=== PATIENT | male | born 1960 | race Hispanic/Latino ===

== ENCOUNTER 2018-06-29 19:45 | Emergency (ER) | payer BC ==
[2018-06-29 19:47] VITALS: BMI 30.8
[2018-06-29 19:53] VITALS: RESP 18; TEMP 97.3
[2018-06-29] MEDS ORDERED: Sodium Chloride 0.9% 500 ML IV STA ×2 (19:59→21:33)
--- NOTE | 2018-06-29 20:07 | ED PDOC ---
Arrival/HPI - General Chief Complaint: GI Problem Time Seen by Provider: 06/29/18 19:50 Historian: Patient - History of Present Illness Narrative History of Present Illness (Text): 06/29/18 20:03 57 m with hx gerd presents to the ED with dizziness and acute nausea/vomiting/diarrhea/ Patient states this morning he felt dizzy, went to work, then during the day vomiting and diarrhea began. Patient denies fever, no bloody emesis or bloody stools, no headache, no chest pain. No recent foreign travel, no abnormal po intake, no sick contacts. Patient presents to the ED actively vomiting. Symptom Onset: Gradual Symptom Course: Unchanged Activities at Onset: Light Past Medical History - Provider Review Nursing Documentation Reviewed: Yes - Cardiac Hx Cardiac Disorders: No Hx Pacemaker: No - Neurological Hx Paralysis: No - Hematological/Oncological Hx Blood Transfusions: No - Musculoskeletal/Rheumatological Hx Musculoskeletal Disorders: Yes - Gastrointestinal Hx Diverticulitis: Yes - Psychiatric Hx Emotional Abuse: No Hx Physical Abuse: No Hx Substance Use: No - Anesthesia Hx Anesthesia Reactions: No Hx Malignant Hyperthermia: No - Suicidal Assessment Feels Threatened In Home Enviroment: No Family/Social History - Physician Review Nursing Documentation Reviewed: Yes Family/Social History: No Known Family HX Smoking Status: Smoker Currrent Status Unknown Hx Alcohol Use: No Hx Substance Use: No Allergies/Home Meds Allergies/Adverse Reactions: Allergies No Known Allergies Allergy (Verified 06/29/18 20:01) Review of Systems - Physician Review All systems were reviewed & negative as marked: Yes - Review of Systems Constitutional: absent: Fevers Cardiovascular: absent: Chest Pain Gastrointestinal: Diarrhea, Vomiting. absent: Hematochezia, Food Intolerance Genitourinary Male: absent: Hematuria Neurological: Dizziness. absent: Headache Physical Exam - Physical Exam Narrative Physical Exam (Text): 06/29/18 20:07 Gen: VS reviewed, alert, well developed, well nourished, nontoxic, mild distress, actively vomiting mucus with greenish tinge without blood Eye: EOMI, PERRL Neck: no JVD, supple, no adenopathy CV: regular rate, regular rhythm, no rubs,no murmur, S1, S2 Pulm: no distress, clear to auscultation, no wheeze, no rhonchi, breath sounds equal, no rales Abd: soft, nontender, no guarding, no rebound, no rigidity Ext: no edema Skin: good color, no rash, no cyanosis Psych: responds appropriately to questions, normal affect Neuro: oriented x3, CN2-12 intact grossly, motor intact, sensation intact Vital Signs Reviewed: Yes Vital Signs Temp Pulse Resp BP Pulse Ox 06/29/18 19:53 97.3 F L 76 18 141/84 99 Temperature: Afebrile Blood Pressure: Normal Pulse: Regular Respiratory Rate: Normal Medical Decision Making ED Course and Treatment: 06/29/18 20:08 Impression: patient presents with acute vomiting and diarrhea, will check lytes, IVF to replete losses, antiemetic and reassess. Clinical presentation consistent with viral gastroent. Plan: -- labs -- IV Fluids, Zofran -- Gallbladder & Pancreas US -- Reassess and disposition Progress Notes: 06/29/18 22:18 patient feels much better, symptoms resolved and patient ready to go home. patient was seen for acute gastroent, no red flags such as fever or bloody stools or abnormal po intake. patient stable for dc, rx for antiemetic. - Lab Interpretations Narrative Lab Interpretation (Text): 06/29/18 20:21 mild nonspecific leukocytosis 06/29/18 20:59 elevated t bili, mild elevated lft I have reviewed the lab results: Yes - RAD Interpretation Narrative RAD Interpretations (Text): US - ABDOMINAL COMPLETE Electronically signed on Jun 29, 2018 9:22:09 PM EST by: Luis Enrique Hickey M.D. Impression Fatty liver. Otherwise negative. [employer] Architect: Radiologist - Medication Orders Current Medication Orders: Sodium Chloride (Sodium Chloride 0.9%) 500 mls @ 999 mls/hr IV .Q31M STA Stop: 06/29/18 20:29 Discontinued Medications Ondansetron HCl (Zofran Inj) 4 mg IVP STAT STA Stop: 06/29/18 19:59 Disposition/Present on Arrival - Present on Arrival Any Indicators Present on Arrival: No History of DVT/PE: No History of Uncontrolled Diabetes: No Urinary Catheter: No History of Decub. Ulcer: No History Surgical Site Infection Following: None - Disposition Have Diagnosis and Disposition been Completed?: Yes Diagnosis: Viral syndrome Disposition: HOME/ ROUTINE Disposition Time: 22:20 Patient Plan: Discharge Condition: STABLE Discharge Instructions (ExitCare): Viral Syndrome (DC), Viral Gastroenteritis, Adult (DC) Additional Instructions: Stay well hydrated (water). Return for any new or worsening symptoms. KEKE DUNBAR, thank you for letting us take care of you today. Your provider was Dr. Diego Gomez and you were treated for gastroenteritis. The emergency medical care you received today was directed at your acute symptoms. If you were prescribed any medication, please fill it and take as directed. It may take several days for your symptoms to resolve. Return to the Emergency Department if your symptoms worsen, do not improve, or if you have any other problems. Please contact your doctor or call one of the physicians/clinics you have been referred to that are listed on the Patient Visit Information form that is included in your discharge packet. Bring any paperwork you were given at discharge with you along with any medications you are taking to your follow up visit. Our treatment cannot replace ongoing medical care by a primary care provider outside of the emergency department. Thank you for allowing the [facility] team to be part of your care today. If you had an X-Ray or CT scan: A Radiologist will review the ED reading if any change in treatment is needed we will contact you. If you had a blood, urine, or wound culture: It will take several days for the results, if any change in treatment is needed we will contact you. If you had an STI test: It will take 48 hours for the results. Please call after 1 week if you have not heard back. Prescriptions: Metoclopramide HCl [Reglan] 10 mg PO TID #9 tablet Referrals: Everton Thornton MD [Primary Care Provider] - Follow up with primary Forms: [employer] ([place])
[2018-06-29 20:16] LABS: BASO # 0.03 K/mm3 (0.0-2.0); BASO % 0.2 % (0.0-3.0); EOS # 0.2 (0.0-0.7); EOS % 1.3 % (1.5-5.0); GRAN # 8.59 (1.4-6.5); GRAN % 67.7 % (50.0-68.0); HEMOGLOBIN 14.9 g/dL (14.0-18.0); LYMPH # 3.3 (1.2-3.4); LYMPH % 25.7 % (22.0-35.0); MEAN CELL VOLUME 87.1 fl (80.0-105.0); MEAN CORPUSCULAR HEMOGLOBIN 28.7 pg (25.0-35.0); MEAN CORPUSCULAR HGB CONC 32.9 g/dl (31.0-37.0); MEAN PLATELET VOLUME 11.6 fl (7.0-11.0); MONO # 0.7 (0.1-0.6); MONO % 5.1 % (1.0-6.0); RBC 5.2 10^6/uL (3.5-6.1); RED CELL DISTRIBUTION WIDTH 15.1 % (11.5-14.5); WHITE BLOOD COUNT 12.7 10^3/uL (4.5-11.0)
[2018-06-29 20:27] LABS: ALB/GLOB RATIO 1.4 (1.1-1.8); ALBUMIN 4.5 g/dL (3.0-4.8); ALT/SGPT 82 U/L (7-56); AST/SGOT 41 U/L (17-59); BLOOD UREA NITROGEN 16 mg/dL (7-21); CALCIUM 9.4 mg/dL (8.4-10.5); GFR NON-AFRICAN AMERICAN > 60
[2018-06-29 22:26] VITALS: BP 143/91; PULSE 83
[2018-06-29 22:56] VITALS: O2SAT 98
--- NOTE | 2018-06-30 09:41 | US ---
Date of service: 06/29/2018 HISTORY: pain, ?gallstones COMPARISON: None. TECHNIQUE: Sonographic evaluation of the right upper quadrant of the abdomen. FINDINGS: LIVER: Measures 16.4 cm in length. Hepatopedal blood flow. Fatty infiltration manifest ultrasonographically as increased echogenicity of the liver parenchyma. No mass. No intrahepatic bile duct dilatation. GALLBLADDER: Unremarkable. No gallstones. COMMON BILE DUCT: Measures 2.8 mm. No stones. No dilatation. PANCREAS: Unremarkable as visualized. No mass. No ductal dilatation. RIGHT KIDNEY: Measures 4.9 x 13 cm in length. Normal echogenicity. No calculus, mass, or hydronephrosis. AORTA: No aneurysmal dilatation. IVC: Unremarkable. OTHER FINDINGS: None . IMPRESSION: No acute findings related to/ accounting for the clinical presentation. Hepatic steatosis. No focal masses. No intrahepatic bile duct dilatation or perihepatic ascites. Concordant findings (preliminary report) provided by [employer].
== END 2018-06-29 22:53 | disposition home or self-care (01) ==
LOC: ED 19:45
DX: B34.9 Viral infection, unspecified (principal); K57.92 Diverticulitis of intestine, part unspecified, without perforation or abscess without bleeding
CPT/HCPCS: 76705; 80053; 82948; 85025; 96374; 96375; 96376; 99283; J2405; J2765; J7040

== ENCOUNTER 2018-06-30 22:23 | Observation (INO) | payer BC ==
[2018-07-01 01:01] VITALS: BMI 32.3
--- NOTE | 2018-07-01 01:08 | ED PDOC ---
Arrival/HPI - General Chief Complaint: Dizziness/Lightheaded Time Seen by Provider: 07/01/18 00:55 Historian: Patient - History of Present Illness Narrative History of Present Illness (Text): 07/01/18 01:08 57 year old male, with past medical history of diverticulitis, presents to the ED complaining of dizziness since prior to arrival. Patient reports a head spinning sensation associated with imbalance while ambulating. Patient informs mild exacerbation of symptoms with sudden movement of his head. Patient denies any other associated somatic complaints. Patient denies any fevers, chills, headache, vision changes, numbness/tingling, ringing in ears, chest pain, shortness of breath, dyspnea on exertion, cough, abdominal pain, vomiting, diarrhea, back pain, neck pain, or any other complaints. Time/Duration: Prior to Arrival Symptom Onset: Gradual Symptom Course: Unchanged Activities at Onset: Light Context: Home Past Medical History - Provider Review Nursing Documentation Reviewed: Yes - Cardiac Hx Cardiac Disorders: No Hx Pacemaker: No - Neurological Hx Paralysis: No - Hematological/Oncological Hx Blood Transfusions: No - Musculoskeletal/Rheumatological Hx Musculoskeletal Disorders: Yes - Gastrointestinal Hx Diverticulitis: Yes - Psychiatric Hx Emotional Abuse: No Hx Physical Abuse: No Hx Substance Use: No - Anesthesia Hx Anesthesia Reactions: No Hx Malignant Hyperthermia: No - Suicidal Assessment Feels Threatened In Home Enviroment: No Family/Social History - Physician Review Nursing Documentation Reviewed: Yes Family/Social History: Unknown Family HX Smoking Status: Smoker Currrent Status Unknown Hx Alcohol Use: No Hx Substance Use: No Allergies/Home Meds Allergies/Adverse Reactions: Allergies No Known Allergies Allergy (Verified 06/29/18 20:01) Review of Systems - Physician Review All systems were reviewed & negative as marked: Yes - Review of Systems Constitutional: absent: Fevers Respiratory: absent: SOB, Cough Cardiovascular: absent: Chest Pain Gastrointestinal: Nausea. absent: Abdominal Pain, Diarrhea, Vomiting Genitourinary Male: absent: Dysuria, Urinary Output Changes Musculoskeletal: absent: Back Pain, Neck Pain Skin: absent: Rash Neurological: Dizziness. absent: Headache Physical Exam - Physical Exam Narrative Physical Exam (Text): 07/01/18 01:12 Gen: VS reviewed, alert, well developed, well nourished, nontoxic, mild distress. ENT: normal pharynx. Eye: EOMI, PERRL. Lateral nystagmus when fast movement to the left. Neck: no JVD, supple, no adenopathy. CV: regular rate, regular rhythm, no rubs, no murmur, no gallops, S1, S2, pulses equal and strong. Pulm: no distress, clear to auscultation, no wheeze, no rhonchi, breath sounds equal, no rales. Abd: soft, nontender, no guarding, no rebound, no rigidity, normal bowel sounds. Ext: no edema. Skin: good color, no rash, no cyanosis. Psych: responds appropriately to questions, normal affect. Neuro: oriented x 3, CN2-12 intact grossly, motor intact, sensation intact. Normal finger to nose test. Normal heel to mcknight test. Gait imbalance. Appearance: Positive for: Well-Appearing, Non-Toxic, Comfortable Pain Distress: Mild Mental Status: Positive for: Alert and Oriented X 3 Medical Decision Making ED Course and Treatment: 07/01/18 01:08 Impression: 57 year old male presents to the ED complaining of dizziness. Plan: -- CT of Head -- EKG -- Labs -- Antivert -- IV Fluids -- Reassess and disposition Prior Visits: Notes and results from previous visits were reviewed. Progress Notes: 07/01/18 03:[address] newman. patient to be admitted for persistent vertigo symptoms. the vertigo is described as room spinning, it waxes and waned in intensity.there are no focal neuro deficits on exam. symptoms did not improve while taking reglan at home and did not improve with antivert in the ED. patient to be admitted for further neuro workup. ddx including bit not limited to viral labriynthitis, vertebrobasilar insufficiency - RAD Interpretation Narrative RAD Interpretations (Text): 07/01/18 02:18 CT of head reviewed by radiologist, shows: Normal unenhanced CT scan of the brain. Sinusitis. Acute on top of chronic. 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 All medical record entries made by the Scribe were at my direction and personally dictated by me. I have reviewed the chart and agree that the record accurately reflects my personal performance of the history, physical exam, medical decision making, and the department course for this patient. I have also personally directed, reviewed, and agree with the discharge instructions and disposition. Disposition/Present on Arrival - Present on Arrival Any Indicators Present on Arrival: No History of DVT/PE: No History of Uncontrolled Diabetes: No Urinary Catheter: No History of Decub. Ulcer: No History Surgical Site Infection Following: None - Disposition Have Diagnosis and Disposition been Completed?: Yes Diagnosis: Vertigo Disposition: HOSPITALIZED Disposition Time: 03:08 Patient Plan: Admission Condition: STABLE Forms: [employer] (Vietnamese)
[2018-07-01] MEDS: Sodium Chloride 0.9% 1,000 ML IV SCH ×2 (01:22→08:00)
[2018-07-01 01:43] LABS: ALB/GLOB RATIO 1.4 (1.1-1.8); ALBUMIN 4.6 g/dL (3.0-4.8); BLOOD UREA NITROGEN 14 mg/dL (7-21); CALCIUM 9.6 mg/dL (8.4-10.5); GFR NON-AFRICAN AMERICAN > 60
[2018-07-01 01:45] LABS: BASO # 0.02 K/mm3 (0.0-2.0); BASO % 0.2 % (0.0-3.0); EOS % 0.4 % (1.5-5.0); GRAN # 7.85 (1.4-6.5); GRAN % 78.8 % (50.0-68.0); HEMOGLOBIN 14.6 g/dL (14.0-18.0); LYMPH # 1.5 (1.2-3.4); LYMPH % 15.2 % (22.0-35.0); MEAN CELL VOLUME 86.2 fl (80.0-105.0); MEAN CORPUSCULAR HEMOGLOBIN 28.3 pg (25.0-35.0); MEAN CORPUSCULAR HGB CONC 32.9 g/dl (31.0-37.0); MEAN PLATELET VOLUME 11.2 fl (7.0-11.0); MONO # 0.5 (0.1-0.6); MONO % 5.4 % (1.0-6.0); RBC 5.15 10^6/uL (3.5-6.1); RED CELL DISTRIBUTION WIDTH 14.9 % (11.5-14.5)
[2018-07-01 01:48] LABS: ALT/SGPT 86 U/L (7-56)
[2018-07-01 01:50] LABS: AST/SGOT 53 U/L (17-59)
[2018-07-01 01:54] LABS: TROPONIN I < 0.01 ng/mL
--- NOTE | 2018-07-01 09:54 | CT ---
Date of service: 07/01/2018 PROCEDURE: CT HEAD WITHOUT CONTRAST. HISTORY: vertigo COMPARISON: None available. TECHNIQUE: Axial computed tomography images were obtained through the head/brain without intravenous contrast. Radiation dose: Total exam DLP = 955.66 mGy-cm. This CT exam was performed using one or more of the following dose reduction techniques: Automated exposure control, adjustment of the mA and/or kV according to patient size, and/or use of iterative reconstruction technique. FINDINGS: HEMORRHAGE: No intracranial hemorrhage. BRAIN: No mass effect or edema. No atrophy or chronic microvascular ischemic changes. VENTRICLES: Unremarkable. No hydrocephalus. CALVARIUM: Unremarkable. PARANASAL SINUSES: Unremarkable as visualized. No significant inflammatory changes. MASTOID AIR CELLS: Unremarkable as visualized. No inflammatory changes. OTHER FINDINGS: None. IMPRESSION: Normal CT of the Head.
[2018-07-01] MEDS ORDERED: Dextrose 5%/0.45% NS 1,000 ML IV SCH (10:15)
[2018-07-01] MEDS: Dextrose 5%/0.45% NS 1,000 ML IV SCH (11:04)
[2018-07-01] MEDS ORDERED: Dexamethasone 4 MG in Sodium Chloride 0.9% 50 ML IV ONE (15:25)
[2018-07-01] MEDS: Fluticasone Nasal 50 mcg/Spray NS SCH (16:34)
--- NOTE | 2018-07-01 18:30 | HP ---
DATE OF EXAM: 07/01/2018 HISTORY OF PRESENT ILLNESS: The patient is a 57-year-old, well known to me from office. The patient states that on Friday, he was doing some weight lifting exercises, probably he overdid and he woke up on Friday with dizziness and he start feeling very dizzy, lightheaded, and things spinning around him when he moves his head fast. He started to become nauseous. He vomited. No weakness or numbness in his body part. He did have one episode of diarrhea yesterday. No fevers or chills. PAST MEDICAL HISTORY: Significant for gastritis and borderline hypertension. ALLERGIES: HE IS NOT ALLERGIC TO ANY MEDICATIONS. MEDICATIONS AT HOME: He is not on any medicine at home. SOCIAL HISTORY: Denies smoking, drinking, or alcohol use. REVIEW OF SYSTEMS: Feels dizzy when he moves his head and feels nauseous; however, he was able to tolerate breakfast this morning. PHYSICAL EXAMINATION: GENERAL: He is awake, alert, oriented, and communicative. VITAL SIGNS: He is afebrile, pulse 69, respirations 20, and blood pressure 141/85. LUNGS: Bilateral fair airflow. No rhonchi or crackle. HEART: S1 and S2 audible. ABDOMEN: Soft and nontender. No rebound. No guarding. NEUROLOGICAL: He is awake, alert, and able to communicate. Moves all extremities. LABORATORY DATA: WBC is 10, hemoglobin 14, hematocrit 44, and platelet 235. Chemistry; sodium 139, potassium 3.8, chloride 106, CO2 of 26, BUN 14, and creatinine 0.8. Blood sugar 121. ALT 86. Had CT scan of the head done that is unremarkable. ASSESSMENT: 1. Dizziness with nausea and vertigo versus cerebral insufficiency. 2. Borderline hypertension. PLAN: We will continue on IV fluid. We will give him meclizine 25 t.i.d. He was given Zofran as needed. Carotid Doppler is ordered. I will get a neuro evaluation and ENT evaluation. I recommended MRI of the brain, but the patient states he is very close to , he will freak out. He does not want to go until he get knocked down totally by some tranquilizer. I leave it up to neuro to evaluate if it is necessary to do right now or we can treat him conservatively and get it as outpatient as open MRI. Everton Thornton MD [facility] # [id number]
--- NOTE | 2018-07-01 21:11 | CON ---
DATE: 07/01/2018 ADMITTING DOCTOR: Dr. Thornton. INDICATION FOR ADMISSION: Chief complaint of dizziness/lightheadedness. HISTORY OF PRESENT ILLNESS: ER reports this 57-year-old male with past medical history of diverticulitis, presents to the emergency room complaining of dizziness. Since prior arrival, patient reports head spinning sensation associated with disequilibrium while ambulating and quick movements on rotation. The patient informs mild exacerbation of symptoms with sudden movements of his head complaining of nausea. The patient denies any associated somatic changes. No weakness in arms or legs and denies any type of fever, headache or visual changes. No numbness, tingling, change in hearing, ringing or any type of shortness of breath. PAST MEDICAL HISTORY: Negative for cardiac history, negative for previous neurologic history. The patient denies any type of hematological or blood transfusion. No muscular disorders noted. Weakness in the musculoskeletal system. On admission, history of diverticulitis. No psychiatric. Denies any type of abuse. FAMILY HISTORY: Smoker, current status unknown. Denies alcohol or substance abuse. ALLERGIES: NO KNOWN REACTION AND/OR ALLERGIES. At the time of exam, the patient had no fevers, no shortness of breath or cough. Denies any type of chest pain. PHYSICAL EXAMINATION: GENERAL: From the ENT perspective, the patient is sitting at bedside. HEENT: Ears bilateral are patent, patent canals, minimum wax noted in the superior quadrants. TMs were noted to be clear without effusion. NECK: Soft and supple with no adenopathy. There is a rotation to the left with mild stimulation with an rotation back and forth. SKIN: Color was good. No edema. ABDOMEN: Soft. No pulmonary components. Appearance positive. Patient is sitting with family, comfortable, and noted improvement. Patient is alert and oriented. LABORATORY DATA: A CAT scan was done and the result to the CAT scan has a narrative shows normal unenhanced CAT scan of the brain. EKG was noted to be within normal range. A carotid Doppler was done and is pending. IMPRESSION: At this point is acute vestibular component or vertigo with noted disequilibrium. RECOMMENDATION: A 48 to 72 hours of IV Decadron, anti-vertiginous medicine along the lines of Antivert or meclizine. If noted breakthrough with use of valium, the patient can be discharged after 48 to 72 hours and can follow in the office of Dr. Brijesh Mitchell, which at time a recommendation of audiogram and VNG for baseline. The patient may need physical therapy secondary to the severe or vertical vestibular therapy secondary to severe component of vestibular disease. The patient will be tried as an outpatient for home vestibular rehab with exercises. The patient has been seen by me in the past for a similar episode and had noted improvement with vestibular stimulation. At this point that should not be done as discussed with the patient. Card was given and patient will follow as a follow up or an outpatient after IV therapy. Brijesh Mitchell DO
--- NOTE | 2018-07-01 22:03 | US ---
PROCEDURE: Bilateral carotid artery duplex ultrasound HISTORY: Carotid stenosis PHYSICIAN(S): Yury Menendez MD. TECHNIQUE: Duplex sonography and color-flow Doppler were used to evaluate the carotid bifurcations and limited segments of the vertebral arteries bilaterally. FINDINGS: There is mild smooth heterogeneous plaque noted at the carotid bifurcations bilaterally. The peak systolic velocity in the proximal right internal carotid artery is 97 cm/sec. This corresponds to a 20 to 39% proximal right ICA stenosis. Normal systolic velocities are noted in the proximal right external carotid artery. There is antegrade flow in the right vertebral artery. The peak systolic velocity in the proximal left internal carotid artery is 83 cm/sec. This corresponds to a 20 to 39% proximal left ICA stenosis. Normal systolic velocities are noted in the proximal left external carotid artery. There is antegrade flow in the left vertebral artery. IMPRESSION: 1. Bilateral 20-39% proximal ICA stenoses. 2. Antegrade flow in both vertebral arteries.
--- NOTE | 2018-07-01 23:57 | CARD ---
APPROVED REPORT Date of service: 07/01/2018 EKG Measurement Heart [id number] <Conclusion> Normal sinus rhythm Normal ECG
[2018-07-02] MEDS: Dextrose 5%/0.45% NS 1,000 ML IV SCH (06:12)
[2018-07-02 06:22] VITALS: O2SAT 98
--- NOTE | 2018-07-02 08:21 | CON ---
DATE: 07/01/2018 HISTORY OF PRESENT ILLNESS: This is a 57-year-old male with past medical history of diverticulitis and came with the complaint of dizziness with the spinning sensation and imbalance when attempting to walk. The patient also has nausea and vomiting which relieved with antiemetic and started on meclizine. PAST MEDICAL HISTORY: Diverticulitis. ALLERGIES: NO KNOWN DRUG ALLERGY. PHYSICAL EXAMINATION HEENT: Normocephalic and atraumatic. NECK: Supple. NEUROLOGIC: Alert, awake and orientated x3. No aphasia. Cranial nerves II through XII are tested. Pupil reactive. EOM intact. Visual field full. No facial asymmetry. Tongue midline. Motor examination: Alert, awake and orientated x3. No aphasia. Cranial nerves II through XII are tested. Pupil reactive. Spontaneous movement of the extremities noted. Deep tendon reflexes are 1+. Plantars downgoing. Sensory appears intact. Cerebellar gait deferred. IMPRESSION AND PLAN: Vertigo, possibly benign positional and rule out posterior fossa lesion. The patient was ordered the MRI of the head, refusing because of claustrophobia. CAT scan was negative. Carotid Doppler is done. The patient is getting meclizine. We will follow up. George Preston MD
[2018-07-02] MEDS: Fluticasone Nasal 50 mcg/Spray NS SCH (09:11)
--- NOTE | 2018-07-02 10:37 | CP.PCM.PCO ---
Physician Communication Note - Physician Communication Note Physician Communication Note: positional vertigo. s/p decadron. will need outpt vestibular therapy.
[2018-07-02 13:52] VITALS: BP 127/74; PULSE 77; RESP 20; TEMP 98
--- NOTE | 2018-07-02 14:28 | DS ---
HISTORY OF PRESENT ILLNESS: The patient is 57-year-old who came in with extreme dizziness as well as he moves his head. He thinks starts spinning. He was not doing at home. Had CT scan of the brain done, was unremarkable, also had carotid Doppler that is unremarkable. He responded very well to dexamethasone and Antivert, doing much better . He states he is 90% improved and wishes to go home. PHYSICAL EXAMINATION: VITAL SIGNS: He is afebrile, pulse 78, respirations 18, blood pressure 125/83. LUNGS: Bilateral fair air flow. No rhonchi or crackle. HEART: S1, S2 audible. ABDOMEN: Soft, nontender. No rebound. No guarding. NEUROLOGIC: He is awake, alert, oriented, and communicative, nonfocal. LABORATORY DATA: His carotid Doppler is unremarkable. CT scan of the head; no acute intracranial abnormality noted. ASSESSMENT: 1. Labyrinthitis and benign positional vertigo. 2. Hypertension. PLAN: The patient is being discharge home on Antivert 25 mg 3 times a day, and he is also being discharged on Norvasc 5 mg daily. He will follow up in office next week. Everton Thornton MD
[2018-07-03] MEDS ORDERED: Pantoprazole 40 mg EC Tab PO SCH (07:30)
== END 2018-07-02 15:14 | disposition home or self-care (01) ==
LOC: ED 22:23 → ERH 07-01 03:09 → INTOOBSV 07-01 03:09 → ERH 07-01 03:26 → 2RSO 07-01 04:04
PROVIDERS: ADMIT Internal Medicine; ATTEND Internal Medicine
DX: H83.09 Labyrinthitis, unspecified ear (principal); H81.10 Benign paroxysmal vertigo, unspecified ear; I10 Essential (primary) hypertension; F40.240 Claustrophobia
CPT/HCPCS: 70450; 80053; 84484; 85025; 93005; 93880; 99285; C9113; G0378; J1100; J7030; J7042